=== PATIENT | female | born 1950 | race Caucasian/White ===

== ENCOUNTER → 2017-03-24 | Outpatient (CLI) | payer OTHER ==
--- NOTE | 2017-03-24 14:58 | MAMMOGRAPHY REPORT ---
UNILATERAL LEFT DIGITAL DIAGNOSTIC MAMMOGRAM TOMOSYNTHESIS WITH CAD: 03/24/2017 CLINICAL HISTORY: 66-year-old woman with a personal history of right breast cancer status post treat ment presents for follow-up in the left breast for a probably benign effacing asymmetry. TECHNIQUE: Left breast tomosynthesis in addition to standard 2D mammography was performed. Current brenda callejas was also evaluated with a Computer Aided Detection (CAD) system. COMPARISON: Comparison is made to exams dated: 09/23/2016 ultrasound, 09/23/2016 mammogram, 016 mammogram, 09/06/2015 mammogram - [facility], 08/15/2014 mammogram, and 013 mammogram. BREAST COMPOSITION: There are scattered areas of fibroglandular density in the left breast. FINDINGS: The asymmetry in the medial, middle one third of the breast on the CC view is less promine nt comparing to the 09/10/2016 mammogram. There is no persistent distortion on the corresponding to mosynthesis images. They current parenchymal pattern is very similar to the 2012, 2011 [address] m[address], suggesting it represents normal fibroglandular tissue. There is stable nodular asymmetry i n the lateral left breast, also unchanged dating back to 2010. No new suspicious mass, architectura l distortion or cluster of microcalcifications is seen. IMPRESSION: ACR BI-RADS CATEGORY 2: BENIGN The left medial asymmetry reverted to baseline. There is no mammographic evidence of malignancy. Re turn to annual mammogram screening schedule is recommended. The patient has been verbally notified of the results. Approximately 10% of breast cancers are not detected with mammography. A negative mammographic repor t should not delay biopsy if a clinically suggestive mass is present. Alysa Walker M.D. ay/:03/24/2017 08:54:37 Tower Observer: Bettina RODRIGUEZ(Mai)([place]), [facility] letter sent: Normal 1/2 BI-RADS Code: ACR BI-RADS Category 2: Benign
== END | disposition home or self-care (01) ==
LOC: C.MAMM 08:17
PROVIDERS: ATTEND Family Medicine
DX: N64.9 Disorder of breast, unspecified (principal); Z85.3 Personal history of malignant neoplasm of breast

== ENCOUNTER → 2017-08-11 | Outpatient (CLI) | payer OTHER ==
--- NOTE | 2017-08-11 09:30 | DIAGNOSTIC IMAGING REPORT ---
THYROID ULTRASONOGRAPHY CLINICAL HISTORY: Multinodular thyroid gland COMPARISON STUDY: 08/12/2016 FINDINGS: The right lobe of thyroid measures 51 x 21 x 17 mm. There are multiple right lobe nodules, the largest of which is a circumscribed mildly hypoechoic mid pole posterior nodule injuring 11 x 12 x 8 mm. This remains essentially unchanged from the preceding study. The left lobe measures 49 x 17 x 16 mm. There are multiple left lobe nodules, the largest of which is a circumscribed wider than tall mixed echogenicity 11 x 14 x 7 mm nodule. This nodule also remains unchanged in size from the preceding study. IMPRESSION: Multinodular thyroid gland similar to the preceding examination. Electronically signed by: Jose Carlos Price M.D. 08/11/2017 9:29 AM Dictated Date/Time: 08/11/2017 9:27 AM
== END | disposition home or self-care (01) ==
LOC: C.ULTR 08:49
PROVIDERS: ATTEND Internal Medicine Endocrinology, Diabetes & Metabolism
DX: Z00.00 Encounter for general adult medical examination without abnormal findings (principal); E04.2 Nontoxic multinodular goiter

== ENCOUNTER → 2017-09-14 | Outpatient (CLI) | payer OTHER ==
--- NOTE | 2017-09-15 14:32 | MAMMOGRAPHY REPORT ---
BILATERAL DIGITAL SCREENING MAMMOGRAM TOMOSYNTHESIS WITH CAD: 09/14/2017 CLINICAL HISTORY: Asymptomatic. Personal history of breast cancer. TECHNIQUE: Breast tomosynthesis in addition to standard 2D mammography was performed. Current study was also evaluated with a Computer Aided Detection (CAD) system. COMPARISON: Comparison is made to exams dated: 03/24/2017 mammogram, 09/23/2016 mammogram, 09/23/2016 ultrasound, 09/10/2016 mammogram, 09/06/2015 mammogram - [facility], and 4 mammogram. BREAST COMPOSITION: There are scattered areas of fibroglandular density in both breasts. FINDINGS: No suspicious masses, calcifications, or areas of architectural distortion are noted in ei ther breast. There has been no significant interval change compared to prior exams. There is stable postsurgical architectural distortion in the right upper outer quadrant, with a linear scar marker de noting a scar on the right upper outer breast. A linear scar marker also denotes a scar on the left upper outer breast. Bilateral benign-appearing calcifications are not significantly changed. Small benign-appearing 6 mm mass in the left lower outer quadrant is stable compared to multiple prior exam s including the 2011 exam. IMPRESSION: ACR BI-RADS CATEGORY 2: BENIGN There is no mammographic evidence of malignancy. A 1 year screening mammogram is recommended. The pa tient will receive written notification of the results. Approximately 10% of breast cancers are not detected with mammography. A negative mammographic report should not delay biopsy if a clinically suggestive mass is present. Regi Calderon M.D. ah/:09/14/2017 14:56:30 [employer] Cutter [employer] Shape Carver: Mai Vigil, M, [facility] letter sent: Normal 1/2 BI-RADS Code: ACR BI-RADS Category 2: Benign
== END | disposition home or self-care (01) ==
LOC: C.MAMM 08:47
PROVIDERS: ATTEND Family Medicine
DX: Z12.31 Encounter for screening mammogram for malignant neoplasm of breast (principal); Z85.3 Personal history of malignant neoplasm of breast